=== PATIENT | female | born 1960 ===

== ENCOUNTER 2021-12-06 06:07 | Day surgery (SDC) | payer OTHER ==
[~2021-12-06 06:07] MED LIST: AMLODIPIN PO; FARXIGA5 MG PO; TIROSINT150 MCG PO; TRADJENTA5 MG PO
== END 2021-12-06 21:41 | disposition home or self-care (01) ==
LOC: CIR.AMB 06:07
PROVIDERS: ATTEND Colon & Rectal Surgery
DX: K64.2 Third degree hemorrhoids (principal); K59.09 Other constipation; K92.2 Gastrointestinal hemorrhage, unspecified; Z20.822 Contact with and (suspected) exposure to COVID-19; Z88.6 Allergy status to analgesic agent; Z88.8 Allergy status to other drugs, medicaments and biological substances; I10 Essential (primary) hypertension; E03.9 Hypothyroidism, unspecified; E11.42 Type 2 diabetes mellitus with diabetic polyneuropathy